=== PATIENT | male | born 1960 | race African-American/Black ===

== ENCOUNTER 2025-04-26 01:55 | Emergency (ER) | payer BC, MEDICARE ==
[~2025-04-26] VITALS: Ht 182.9 cm; Wt 91.0 kg
[2025-04-26 02:04] VITALS: O2SAT 97
[2025-04-26] MEDS: METOCLOPRAMIDE HCL 10MG/2ML VIAL IV ONE (02:53)
[2025-04-26] MEDS: KETOROLAC 15MG/ML VIAL IV ONE (02:53)
[2025-04-26] MEDS: SODIUM CHLORIDE 0.9% 1,000 ML IV ONE (02:54)
[2025-04-26] MEDS: DIPHENHYDRAMINE 50MG/ML VIAL IV ONE (02:54)
[2025-04-26 05:27] VITALS: BP 117/81; PULSE 68; RESP 12; TEMP 36.8; O2SAT 97
== END 2025-04-26 05:31 | disposition home or self-care (01) ==
LOC: ER 02:43
DX: G44.009 Cluster headache syndrome, unspecified, not intractable (principal)
CPT/HCPCS: 99285; 70450; 96374; 96375; 96361; 70486; J1885; J1200; J2765; J7030

== ENCOUNTER 2025-04-27 08:10 | Emergency (ER) | payer BC, MEDICARE ==
[~2025-04-27] VITALS: Ht 182.9 cm; Wt 90.0 kg
[2025-04-27 08:12] VITALS: O2SAT 99
[2025-04-27] MEDS: ACETAMINOPHEN 1000MG/100ML 100 ML IV ONE (09:09)
[2025-04-27] MEDS: METOCLOPRAMIDE HCL 10MG/2ML VIAL IV ONE (09:10)
[2025-04-27] MEDS: LACTATED RINGERS 1,000 ML IV SCH (09:10)
[2025-04-27] MEDS: KETOROLAC 15MG/ML VIAL IV ONE (09:10)
[2025-04-27] MEDS: DIPHENHYDRAMINE 50MG/ML VIAL IV ONE (09:46)
[2025-04-27] MEDS: DEXAMETHASONE 10 MG/ML VIAL IV ONE (09:59)
[2025-04-27] MEDS: HALOPERIDOL LACTATE 5MG/ML VIAL IM ONE (10:37)
[2025-04-27] MEDS: MAGNESIUM 2 G PREMIX 50 ML IV ONE (10:50)
[2025-04-27 10:56] LABS: BASOPHILS % 0.4 % (0.0-2.0); EOSINOPHILS % 0.4 % (0.0-5.0); HEMATOCRIT. 45.9 % (42.0-52.0); HEMOGLOBIN. 15.0 g/dL (14.0-18.0); LYMPHOCYTES % 17.6 % (20.0-50.0); MEAN PLATELET VOLUME 7.0 fl (7.4-10.4); MONOCYTES % 4.5 % (2.0-8.0); NEUTROPHILS % 77.1 % (40.0-76.0); PLATELET 209 x1000/uL (130-400); RED BLOOD CELL COUNT 5.65 mill/uL (4.7-6.1); RED CELL DISTRIBUTION WIDTH 14.6 % (11.6-14.6)
[2025-04-27 11:12] LABS: CREATININE 1.0 mg/dL (0.6-1.3); UREA NITROGEN BLOOD 12 mg/dL (9-23)
[2025-04-27 13:08] VITALS: BP 149/97; PULSE 74; RESP 13; TEMP 37.2; O2SAT 96
== END 2025-04-27 13:29 | disposition home or self-care (01) ==
LOC: ER 08:10
DX: G43.909 Migraine, unspecified, not intractable, without status migrainosus (principal); G47.30 Sleep apnea, unspecified
CPT/HCPCS: 99285; 96365; 96375; 70450; 96367; 96361; 80048; 85025; 36415; 96372; J1885; J1100; J1200; J1630; J3475; J2765; J0131

== ENCOUNTER 2025-04-30 06:56 | Emergency (ER) | payer BC, MEDICARE ==
[~2025-04-30] VITALS: Ht 182.9 cm; Wt 90.1 kg
[2025-04-30 07:01] VITALS: O2SAT 98
[2025-04-30] MEDS: ACETAMINOPHEN 1000MG/100ML 100 ML IV ONE (08:31)
[2025-04-30] MEDS: LACTATED RINGERS 1,000 ML IV SCH (08:32)
[2025-04-30] MEDS: HALOPERIDOL LACTATE 5MG/ML VIAL IM ONE (08:32)
[2025-04-30] MEDS: DIPHENHYDRAMINE 50MG/ML VIAL IV ONE (09:40)
[2025-04-30] MEDS: KETOROLAC 15MG/ML VIAL IV ONE (09:40)
[2025-04-30 11:02] VITALS: BP 128/80; PULSE 75; RESP 16; TEMP 36.8; O2SAT 99
== END 2025-04-30 11:03 | disposition home or self-care (01) ==
LOC: ER 06:56
DX: G43.909 Migraine, unspecified, not intractable, without status migrainosus (principal); Z98.890 Other specified postprocedural states
CPT/HCPCS: 99284; 96365; 96375; 96361; 96372; J1885; J1200; J1630; J0131